=== PATIENT | female | born 1955 | race Caucasian/White ===

== ENCOUNTER 2018-04-29 08:16 | Inpatient (IN) | payer SELFPAY ==
[2018-04-29] MEDS ORDERED: Sodium Chloride 0.9% 10 ML Syringe FLUSH PRN (08:20)
[2018-04-29] MEDS ORDERED: Sodium Chloride 0.9% 2.5 ML Syringe FLUSH PRN (08:20)
[2018-04-29] MEDS ORDERED: Ondansetron 4 MG/2 ML SDV IVPUSH ONE (08:21)
[2018-04-29] MEDS ORDERED: Morphine 2 MG/ML Syringe IVPUSH ONE (08:21)
[2018-04-29] MEDS ORDERED: Sodium Chloride 0.9% 500 ML IV ONE (08:21)
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
--- NOTE | 2018-04-29 09:08 | CT ---
EXAMINATION: Non contrast CT head. Coronal and sagittal reformats. HISTORY: Pain FINDINGS: No evidence of intra or extra axial hemorrhage, mass, midline shift, hydrocephalus or edema. No hypoattenuation changes in the major vascular territories to suggest acute infarct. No abnormal intracranial calcifications are detected. No evidence of substantial vascular calcifications. Trace fluid within the maxillary sinuses bilaterally. Pituitary fossa appears unremarkable. Calvarium is intact. No evidence of skull fracture. IMPRESSION: 1. No acute intracranial findings. 2. Trace fluid within the maxillary sinuses, this could be secondary to a facial injury versus paranasal sinus disease.
--- NOTE | 2018-04-29 09:13 | CT ---
EXAMINATION: CT cervical spine without contrast HISTORY: Pain COMPARISON: None TECHNIQUE: Axial CT images obtained through the cervical spine without contrast. Coronal and sagittal reconstructions obtained. FINDINGS: There is mild reversal of the normal cervical lordosis. Vertebral body heights appear maintained. Moderate marginal osteophytes noted. Osteophyte disc complexes are noted from C5 to C7. Lung apices are clear. The paravertebral soft tissues are normal. Lung apices are clear. Left second rib fracture anteriorly. IMPRESSION: 1. Degenerative changes noted within the cervical spine without acute findings. 2. Mildly displaced left second anterior rib fracture.
--- NOTE | 2018-04-29 09:32 | CR ---
EXAMINATION: Left shoulder HISTORY: Pain COMPARISON: None TECHNIQUE: 3 views FINDINGS/IMPRESSION: There is no acute osseous abnormality, dislocation, or fracture. Bone mineralization and joint spaces are preserved. Mild acromioclavicular osteoarthritic changes.
--- NOTE | 2018-04-29 09:38 | CT ---
EXAMINATION: CT chest with contrast HISTORY: Shortness of breath COMPARISON: None TECHNIQUE: Contiguous CT imaging obtained through the chest following the administration of 75 mL of Isovue-370. Coronal and sagittal reconstructions obtained. FINDINGS: The lungs are clear without focal consolidation. Mild dependent atelectasis. Several small pulmonary nodules are noted bilaterally measuring up to 5 mm within the left lung base. No pleural effusion or pneumothorax. Heart is normal in size without a pericardial effusion. The thoracic aorta is normal in caliber. The main and central pulmonary arteries are patent. No axillary or mediastinal lymphadenopathy. Jarvis is imaging of the upper abdomen appear normal. Mildly displaced left second rib fracture anteriorly, nondisplaced third through seventh rib fractures anteriorly. IMPRESSION: 1. Second through seventh left rib fractures anteriorly. 2. Otherwise no acute cardiopulmonary findings. 3. Several sub-6 mm pulmonary nodules bilaterally, if the patient has known risk factors consider follow-up imaging in 12 months.
[2018-04-29] MEDS ORDERED: Iopamidol 755 MG/ML 500 ML Multipack Bottle IVPUSH ONE (09:51)
[2018-04-29] MEDS ORDERED: HYDROmorphone 1 MG/ML Syringe IVPUSH ONE (09:59)
[2018-04-29] MEDS ORDERED: LORazepam 2 MG/ML SDV IVPUSH ONE (09:59)
[2018-04-29 10:02] LABS: CHLORIDE,CL 104 mmol/L (98-107); SODIUM,NA 139 mmol/L (136-145)
[2018-04-29] MEDS ORDERED: Morphine PF 30 MG/30 ML PCA Vial IV SCH (12:45)
[2018-04-29] MEDS: Diazepam 5 MG Tab PO SCH ×2 (13:05→21:02)
[2018-04-29] MEDS: Cyclobenzaprine 10 MG Tab PO SCH ×2 (13:05→21:02)
[2018-04-29] MEDS: Lactated Ringers 1,000 ML IV SCH (13:06)
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
[2018-04-30] MEDS: Lactated Ringers 1,000 ML IV SCH (01:59)
[2018-04-30] MEDS: Cyclobenzaprine 10 MG Tab PO SCH ×2 (06:25→13:12)
[2018-04-30] MEDS: Diazepam 5 MG Tab PO SCH ×2 (06:25→13:12)
[2018-04-30] MEDS: Acetaminophen/HYDROcodone 325-5 MG Tab PO PRN ×2 (09:22→11:22)
== END 2018-04-30 16:00 | disposition home or self-care (01) | DRG 185 ==
LOC: MW.ED 08:16 → MW.MS 09:15
PROVIDERS: ADMIT Surgery; ATTEND Surgery
DX: S22.42XA Multiple fractures of ribs, left side, initial encounter for closed fracture (principal); S20.212A Contusion of left front wall of thorax, initial encounter; V53.5XXA Driver of pick-up truck or van injured in collision with car, pick-up truck or van in traffic accident, initial encounter; Y92.410 Unspecified street and highway as the place of occurrence of the external cause; Z79.899 Other long term (current) drug therapy
CPT/HCPCS: 36415; 70450; 70450-26; 71260; 71260-26; 72125; 72125-26; 73030-26-LT; 73030-LT; 80053; 81001; 83690; 85025; 96361; 96374; 96375; 99285-25; A9270-GY; J1170; J2060; J2270; J2274; J2405; J7040; J7120; Q9967